=== PATIENT | female | born 1960 | race Hispanic/Latino ===

== ENCOUNTER 2018-06-17 10:42 | Emergency (ER) | payer MEDICARE ==
[~2018-06-17 10:42] MED LIST: AMLO10TA7 PO; ARFO15VI3 IH; ASPI-1005 PO; B CO1CAP PO; BENZ200C53 PO; BUDE10.2 IH; CALC0.253 PO; CRAN1CAP9 PO; FERR-82 PO; FURO40TA5 PO; INSU100V12 SQ; INSU10VI3 SQ; ISOS120T14 PO; KRIL500C PO; LEVO175T9 PO; LEVO250T2 PO; LOVA40TA2 PO; METO2.5T2 PO; METO50TA18 PO; NAPR220C15 PO; NITR0.4T50 SL; OMEP20TA25 PO; RANO10003 PO; WARF-57 PO
[2018-06-17] MEDS ORDERED: PROCHLORPERAZINE EDISYLATE 10 MG/2 ML VIAL ONE (10:57)
[2018-06-17] MEDS ORDERED: KETOROLAC TROMETHAMINE 15MG/ML ONE (10:57)
[2018-06-17 11:29] LABS: BASOPHILS % (AUTO) 0.5 % (0.0-5.0); EOSINOPHILS % (AUTO) 0.2 % (0.0-8.0); HEMATOCRIT 32.3 % (36-48); LYMPHOCYTES % (AUTO) 3.8 % (21.0-51.0); MEAN CORPUSCULAR HEMOGLOBIN 34.5 pg (27.0-33.0); MEAN CORPUSCULAR HGB CONC 34.2 g/dL (32.0-36.0); MEAN CORPUSCULAR VOLUME 100.7 fL (79-99); MONOCYTES % (AUTO) 4.8 % (3.0-13.0); NEUTROPHILS % (AUTO) 90.7 % (40.0-77.0); NUCLEATED RED BLOOD CELLS 0.3 % (0.0-0.19); PLATELET COUNT (AUTO) 216 K/uL (130-400); RED CELL DISTRIBUTION WIDTH 15.4 % (11.0-15.5); WHITE BLOOD COUNT (AUTO) 8.7 K/uL (4.8-10.8)
[2018-06-17 11:30] LABS: CREATININE 3.1 mg/dL (0.5-1.5); POTASSIUM 4.7 mmol/L (3.5-5.1)
[2018-06-17 11:36] LABS: INR 0.99 (0.85-1.15); PARTIAL THROMBOPLASTIN TIME 30.5 SEC (26.3-35.5); PROTHROMBIN TIME 10.4 SEC (9.6-11.6)
[2018-06-17 11:41] LABS: ALBUMIN 3.7 g/dL (3.5-5.0); TOTAL PROTEIN, SERUM 8.3 g/dL (6.0-8.3)
[2018-06-17 11:56] LABS: B-TYPE NATRIURETIC PEPTIDE 998 pg/mL (0-100)
[2018-06-19] MEDS ORDERED: MONT10TA24 PO (05:39)
[2018-06-19] MEDS ORDERED: PANT40TA PO (05:39)
[2018-06-19] MEDS ORDERED: ATOR40TA71 PO (05:39)
[2018-06-19] MEDS ORDERED: METO5TAB2 PO (05:39)
[2018-06-19] MEDS ORDERED: ACET325C5 PO (05:39)
[2018-06-19] MEDS ORDERED: SEVE800T7 PO (05:39)
[2018-06-19] MEDS ORDERED: FOLI1TAB85 PO (05:39)
[2018-06-19] MEDS ORDERED: METH500T6 PO (05:39)
[2018-06-19] MEDS ORDERED: GABA-529 PO (05:39)
[2018-06-19] MEDS ORDERED: METO50TA18 PO (05:39)
[2018-06-19] MEDS ORDERED: APIX5TAB PO (05:39)
[2018-06-19] MEDS ORDERED: AEC81 PO (05:39)
[2018-06-19] MEDS ORDERED: FEBU40TA PO (05:39)
[2018-06-19] MEDS ORDERED: FLUT15.88 NS (05:54)
[2018-06-19] MEDS ORDERED: FLUT1AER IH (05:54)
[2018-06-19] MEDS ORDERED: INSU100I3 SQ (05:54)
[2018-06-19] MEDS ORDERED: FOLI0.4T2 PO (05:54)
[2018-06-19] MEDS ORDERED: CHOL100040 PO (05:58)
[2018-06-19] MEDS ORDERED: MECL-129 PO (05:58)
[2018-06-19] MEDS ORDERED: ALBU6.7H IH (06:07)
[2018-06-20] MEDS ORDERED: METH500T6 PO (15:00)
== END 2018-06-17 16:42 | disposition home or self-care (01) ==
LOC: EDH 10:42
DX: G43.909 Migraine, unspecified, not intractable, without status migrainosus (principal); R07.9 Chest pain, unspecified; R10.13 Epigastric pain; R11.2 Nausea with vomiting, unspecified; I25.10 Atherosclerotic heart disease of native coronary artery without angina pectoris; N18.6 End stage renal disease; I48.0 Paroxysmal atrial fibrillation
CPT/HCPCS: 36415; 71045; 80053; 82550; 83690; 83874; 83880; 84484 ×2; 85025; 85610; 85730; 93005 ×2; 96374; 96375; 99285; J0780; J1885

== ENCOUNTER 2019-09-10 10:44 | Inpatient (IN) | payer MEDICARE ==
[~2019-09-10] VITALS: Ht 165.1 cm; Wt 168.7 kg
[~2019-09-10 10:44] MED LIST changes: +ACET325C6 PO; +AEC81 PO; +ALBU6.7H9 IH; -AMLO10TA7 PO; +APIX5TAB PO; -ARFO15VI3 IH; -ASPI-1005 PO; +ATOR40TA71 PO; -B CO1CAP PO; -BENZ200C53 PO; -BUDE10.2 IH; -CALC0.253 PO; +CHOL100040 PO; -CRAN1CAP9 PO; +FEBU40TA PO; -FERR-82 PO; +FLUT15.845 NS; +FLUT1AER IH; +FOLI0.4T2 PO; +FOLI1TAB85 PO; -FURO40TA5 PO; +GABA-529 PO; +INSU100I3 SQ; -INSU10VI3 SQ; -ISOS120T14 PO; -KRIL500C PO; -LEVO250T2 PO; -LOVA40TA2 PO; +MECL-129 PO; +METH500T6 PO; -METO2.5T2 PO; +METO5TAB2 PO; +MONT10TA26 PO; -NAPR220C15 PO; -OMEP20TA25 PO; +PANT40TA PO; -RANO10003 PO; +SEVE800T7 PO; -WARF-57 PO
[2019-09-10 11:45] LABS: BASOPHILS % (AUTO) 0.4 % (0.0-5.0); EOSINOPHILS % (AUTO) 0.2 % (0.0-8.0); HEMATOCRIT 35.1 % (36-48); LYMPHOCYTES % (AUTO) 10.1 % (21.0-51.0); MEAN CORPUSCULAR HEMOGLOBIN 34.6 pg (27.0-33.0); MEAN CORPUSCULAR HGB CONC 32.2 g/dL (32.0-36.0); MEAN CORPUSCULAR VOLUME 107.3 fL (79-99); MONOCYTES % (AUTO) 8.9 % (3.0-13.0); NUCLEATED RED BLOOD CELLS 0.4 % (0.0-0.19); PLATELET COUNT (AUTO) 126 K/uL (130-400); RED BLOOD CELL COUNT(AUTO) 3.27 MIL/uL (4.00-5.50); RED CELL DISTRIBUTION WIDTH 15.9 % (11.0-15.5); WHITE BLOOD COUNT (AUTO) 4.5 K/uL (4.8-10.8)
[2019-09-10 12:01] LABS: ABG BASE EXCESS -1.2 mmol/L (-2.0-3.0); ABG HCO3 23.5 mmol/L (21.0-28.0); ABG PCO2 39 mmHg (32-45)
[2019-09-10 12:14] LABS: B-TYPE NATRIURETIC PEPTIDE 1400 pg/mL (0-100)
[2019-09-10 12:26] LABS: CREATININE 10.8 mg/dL (0.5-1.5); POTASSIUM 7.2 mmol/L (3.5-5.1)
[2019-09-10 12:29] LABS: BILIRUBIN,TOTAL 0.5 mg/dL (0.2-1.0); TOTAL PROTEIN, SERUM 7.2 g/dL (6.0-8.3)
[2019-09-10] MEDS ORDERED: CALCIUM GLUCONATE 1 GM/10 ML VIAL IV ONE (12:33)
[2019-09-10] MEDS ORDERED: SODIUM POLYSTYRENE SULFONATE 15 GM/60 ML ML ONE (12:33)
[2019-09-10] MEDS ORDERED: DEXTROSE 50%-WATER 50 ML DISP.SYRIN IV ONE (12:34)
[2019-09-10] MEDS ORDERED: SODIUM BICARB 50MEQ 50ML VIAL ONE (12:34)
[2019-09-10] MEDS ORDERED: SODIUM CHLORIDE 0.9% 50 ML IV ONE (12:35)
[2019-09-10] MEDS ORDERED: INSULIN HUMULIN R 100 UNIT/ML 3ML ONE (12:35)
[2019-09-10] MEDS ORDERED: ALBUTEROL SULFATE 0.083% 2.5 MG/3 ML INH IH ONE (12:40)
[2019-09-10 12:55] LABS: ACETAMINOPHEN < 1 mcg/mL (10-30); SALICYLATE < 2.8 mg/dL (2.8-20.0)
[2019-09-10 13:19] LABS: INR 0.99 (0.85-1.15); PARTIAL THROMBOPLASTIN TIME 34.2 SEC (26.3-35.5); PROTHROMBIN TIME 10.7 SEC (9.6-11.6)
[2019-09-10 13:19] LABS: ABG OXYGEN SATURATION 95.5 % (95.0-99.0)
[2019-09-10] MEDS ORDERED: ACETAMINOPHEN 325 MG TAB ONE ×2 (14:10→22:12)
[2019-09-10] MEDS ORDERED: ZOSYN 3.375GM+NS 50ML 50 ML IV ONE (14:33)
[2019-09-10] MEDS ORDERED: ERGOCALCIFEROL (VITAMIN D2) 50,000 UNIT CAPSULE PO ONE (15:00)
[2019-09-10] MEDS ORDERED: DOXYCYCLINE 100MG+NS 250ML IV SCH (15:00)
[2019-09-10] MEDS ORDERED: ALBUMIN (HUMAN) 25% 50 ML IV ONE (16:13)
[2019-09-10] MEDS ORDERED: DOXYCYCLINE 100MG+NS 250ML 250 ML IV ONE (16:27)
[2019-09-10] MEDS ORDERED: ERGOCALCIFEROL (VITAMIN D2) 50,000 UNIT CAPSULE ONE (16:31)
[2019-09-10] MEDS ORDERED: DILTIAZEM 125MG+100 ML NS 125 ML IV SCH (17:15)
[2019-09-10] MEDS ORDERED: PHARMACY COMMUNICATION MISC SCH (17:15)
[2019-09-10] MEDS ORDERED: DILTIAZEM HCL 125 MG/25 ML VIAL IV ONE (17:31)
[2019-09-10] MEDS ORDERED: SODIUM CHLORIDE 0.9% 100 ML IV ONE ×2 (17:32→23:08)
[2019-09-10 18:40] LABS: ALBUMIN 3.5 g/dL (3.5-5.0); BILIRUBIN,DIRECT 0.1 mg/dL (0.0-0.3); BILIRUBIN,TOTAL 0.4 mg/dL (0.2-1.0); TOTAL PROTEIN, SERUM 8.1 g/dL (6.0-8.3)
[2019-09-10 19:26] LABS: TROPONIN I 1.69 ng/mL (0.00-0.06)
[2019-09-10] MEDS ORDERED: METHYLPREDNISOLONE SOD SUCC 40MG/ML 1ML IVP SCH (21:00)
[2019-09-10] MEDS ORDERED: HYDROCORTISONE SOD SUCCINATE 100 MG/2 ML VIAL ONE (22:49)
[2019-09-10] MEDS ORDERED: MIDODRINE HCL 5 MG TABLET ONE (22:50)
[2019-09-10] MEDS ORDERED: AMIODARONE HCL 50 MG/ML 3 ML VIAL ONE ×2 (23:08→23:09)
[2019-09-10] MEDS ORDERED: SODIUM CHLORIDE 0.9% 250 ML IV ONE (23:09)
[2019-09-10 23:46] LABS: CREATININE 6.6 mg/dL (0.5-1.5)
[2019-09-10 23:49] LABS: MAGNESIUM 1.6 mg/dL (1.80-2.40); PHOSPHORUS 4.2 mg/dL (2.5-4.9)
[2019-09-11] VITALS (27 sets, daily range): BP systolic 90–135; BP diastolic 26–86
[2019-09-11] MEDS ORDERED: MAGNESIUM 2GM PREMIX 50ML 50 ML IV ONE (00:03)
[2019-09-11] MEDS ORDERED: PHENYLEPHRINE HCL 10 MG/ML 1ML VIAL IV ONE ×5 (00:39→23:16)
[2019-09-11] MEDS ORDERED: SODIUM CHLORIDE 0.9% 250 ML IV ONE ×3 (03:02→08:50)
[2019-09-11] MEDS ORDERED: AMIODARONE HCL 50 MG/ML 3 ML VIAL ONE (05:57)
[2019-09-11 07:09] LABS: BASOPHILS % (AUTO) 0.3 % (0.0-5.0); HEMATOCRIT 38.3 % (36-48); LYMPHOCYTES % (AUTO) 8.6 % (21.0-51.0); MEAN CORPUSCULAR HEMOGLOBIN 34.8 pg (27.0-33.0); MEAN CORPUSCULAR HGB CONC 31.9 g/dL (32.0-36.0); MEAN CORPUSCULAR VOLUME 109.1 fL (79-99); MONOCYTES % (AUTO) 5.8 % (3.0-13.0); NEUTROPHILS % (AUTO) 81.3 % (40.0-77.0); PLATELET COUNT (AUTO) 88 K/uL (130-400); RED BLOOD CELL COUNT(AUTO) 3.51 MIL/uL (4.00-5.50); RED CELL DISTRIBUTION WIDTH 16.2 % (11.0-15.5); WHITE BLOOD COUNT (AUTO) 7.3 K/uL (4.8-10.8)
[2019-09-11 07:46] LABS: INR 1.03 (0.85-1.15); PARTIAL THROMBOPLASTIN TIME 30.5 SEC (26.3-35.5); PROTHROMBIN TIME 11.1 SEC (9.6-11.6)
[2019-09-11] MEDS ORDERED: PHARMACY COMMUNICATION MISC SCH (08:45)
[2019-09-11] MEDS ORDERED: ENOXAPARIN SODIUM 40 MG/0.4 ML SYRINGE SQ SCH (09:00)
[2019-09-11 09:43] LABS: BILIRUBIN,TOTAL 0.5 mg/dL (0.2-1.0); MAGNESIUM 2.7 mg/dL (1.80-2.40); POTASSIUM 5.2 mmol/L (3.5-5.1); TOTAL PROTEIN, SERUM 7.1 g/dL (6.0-8.3)
[2019-09-11 09:48] LABS: CREATININE 8.4 mg/dL (0.5-1.5); TROPONIN I 4.78 ng/mL (0.00-0.06)
[2019-09-11 09:55] LABS: CRP QUANTITATIVE 274.2 mg/L (0.00-9.0)
[2019-09-11] MEDS ORDERED: MIDODRINE HCL 5 MG TABLET ONE (13:18)
[2019-09-11 13:26] LABS: ABG BASE EXCESS -1.1 mmol/L (-2.0-3.0); ABG HCO3 23.5 mmol/L (21.0-28.0); ABG OXYGEN SATURATION 99.6 % (95.0-99.0); ABG PCO2 39 mmHg (32-45)
--- NOTE | 2019-09-11 13:35 | NUR ---
IA- SPOKE TO DAUGHTER FOR DC PLANNING STATES PATIENT LIVES WITH SPOUSE, SON/DAUGHTER IN LAW/ KID, NO SICK CONTACTS IN THE HOME, STATES PATIENT USES A CANE FOR AMBULATION, HAS A SHOWE CHAIR, RAMP AT HOUSE, STATES FAMILY DRIVES TO DIALYSIS; STATE GOES TO DIALYSIS AT [facility] ON [address], AWARE THAT KARISHMA POSITIVE COVID STATUS WILL NEED TO GO TO [place] FOR HD TX. NEPHROLOIST IS LEE ANN WEI Addendum: 09/11/19 at 1340 by TYLER SANTOS RN CM Amended: Links added.
[2019-09-11] MEDS: MIDODRINE HCL 5 MG TABLET PO SCH ×4 (14:00→21:52)
[2019-09-11] MEDS: CEFTRIAXONE SODIUM 1 GM IVP SCH ×3 (15:08→17:18)
[2019-09-11] MEDS: DOXYCYCLINE 100MG+NS 250ML 250 ML IV SCH ×2 (15:09→15:14)
[2019-09-11] MEDS: HYDROCORTISONE SOD SUCCINATE 100 MG/2 ML VIAL IV SCH ×5 (15:10→17:18)
[2019-09-11] MEDS: ASCORBIC ACID 500 MG TAB PO SCH (15:12)
[2019-09-11] MEDS: ZINC SULFATE 220 CAPSULE PO SCH (15:12)
[2019-09-11 15:14] LABS: TROPONIN I 5.35 ng/mL (0.00-0.06)
[2019-09-11] MEDS: PHENYLEPHRINE HCL 10 MG in SODIUM CHLORIDE 0.9% 250 ML IV PRN ×2 (18:39→23:47)
[2019-09-11] MEDS ORDERED: HEPARIN SODIUM 5000UNIT/ML 1ML VIAL IV SCH ×2 (18:45→21:00)
[2019-09-11] MEDS: HEPARIN 25000 UNITS/250 ML D5W 250 ML IV PRN ×2 (20:00→22:13)
[2019-09-11] MEDS: DOXYCYCLINE HYCLATE 100 MG TABLET PO SCH (21:52)
[2019-09-12] VITALS (67 sets, daily range): BP systolic 43–153; BP diastolic 14–108
[2019-09-12 00:52] LABS: HEMATOCRIT 35.6 % (36-48)
[2019-09-12] MEDS: CEFTRIAXONE SODIUM 1 GM IVP SCH ×2 (02:14→12:54)
[2019-09-12] MEDS: HYDROCORTISONE SOD SUCCINATE 100 MG/2 ML VIAL IV SCH ×5 (02:15→18:37)
[2019-09-12] MEDS: PHENYLEPHRINE HCL 10 MG in SODIUM CHLORIDE 0.9% 250 ML IV PRN (02:16)
--- NOTE | 2019-09-12 03:00 | NUR ---
Notified MD of positive occult blood in stool, no new orders received. Also, informed of heparin start and end times and most recent hemoglobin and hematocrit.
[2019-09-12 07:00] LABS: ALBUMIN 2.9 g/dL (3.5-5.0); BILIRUBIN,TOTAL 0.6 mg/dL (0.2-1.0); TOTAL PROTEIN, SERUM 7.1 g/dL (6.0-8.3)
[2019-09-12 07:36] LABS: CREATININE 10.3 mg/dL (0.5-1.5); POTASSIUM 6.2 mmol/L (3.5-5.1)
[2019-09-12] MEDS ORDERED: CEFTRIAXONE SODIUM 1 GM IVP SCH (08:15)
[2019-09-12] MEDS: DOXYCYCLINE HYCLATE 100 MG TABLET PO SCH ×2 (08:30→20:57)
[2019-09-12] MEDS: MIDODRINE HCL 5 MG TABLET PO SCH ×3 (08:30→20:57)
[2019-09-12] MEDS ORDERED: VASOPRESSIN 20 UNITS in SODIUM CHLORIDE 0.9% 100 ML IV SCH (08:45)
[2019-09-12] MEDS: ASCORBIC ACID 500 MG TAB PO SCH (09:00)
[2019-09-12] MEDS ORDERED: ASPIRIN 81MG TAB.CHEW PO SCH (09:00)
[2019-09-12] MEDS ORDERED: SODIUM POLYSTYRENE SULFONATE 15 GM/60 ML ML RC SCH (09:00)
[2019-09-12] MEDS ORDERED: CLOPIDOGREL BISULFATE 75 MG TAB PO SCH (09:00)
[2019-09-12] MEDS ORDERED: PANTOPRAZOLE 40 MG/VIAL IVP SCH (09:00)
[2019-09-12] MEDS ORDERED: CALCIUM CHLORIDE 100 MG/ML 10 ML SYG IVP SCH (09:00)
[2019-09-12] MEDS ORDERED: ACETAMINOPHEN 325 MG TAB PO SCH (09:00)
[2019-09-12] MEDS ORDERED: INSULIN HUMULIN R 100 UNIT/ML 3ML SQ SCH (09:00)
[2019-09-12] MEDS: ZINC SULFATE 220 CAPSULE PO SCH (09:00)
[2019-09-12] MEDS ORDERED: DEXTROSE 50%-WATER 25 GM/50 ML VIAL IV SCH (09:00)
[2019-09-12] MEDS: PHARMACY COMMUNICATION MISC SCH ×2 (09:15→16:42)
[2019-09-12] MEDS ORDERED: SODIUM POLYSTYRENE SULFONATE 15 GM/60 ML ML ONE (09:18)
[2019-09-12] MEDS ORDERED: INSULIN HUMULIN R 100 UNIT/ML 3ML ONE (09:20)
[2019-09-12] MEDS ORDERED: DEXTROSE 50%-WATER 50 ML DISP.SYRIN IV ONE (09:29)
[2019-09-12 09:50] LABS: HEMATOCRIT 33.5 % (36-48)
[2019-09-12] MEDS: NOREPINEPHRINE 4MG/NS 250ML 250 ML IV SCH ×2 (10:08→14:55)
--- NOTE | 2019-09-12 11:25 | NUR ---
CALLED DR. ROCHE'S OFFICE TO INFORM OF NEPHROLOGY CONSULT. SPOKE WITH KATIE, OFFICE STAFF MEMBER WHO WILL NOTIFY DR. ROCHE.
--- NOTE | 2019-09-12 11:37 | NUR ---
PAGED DR. Pito FERNANDO, ASSEMBLY ADJUSTER PER DR. FOX'S OFFICE, TO INFORM OF PERSISTENT AFIB-130'S. AWAITING RESPONSE.
--- NOTE | 2019-09-12 11:44 | NUR ---
RECEIVED CALL FROM DR. FERNANDO, INFORMED OF PT.'S STATUS AND MEDICATION REGIMEN. ORDER TO CALL DR. FOX RECEIVED.
[2019-09-12] MEDS: HEPARIN 25000 UNITS/250 ML D5W 250 ML IV PRN ×2 (11:59→22:09)
--- NOTE | 2019-09-12 12:00 | NUR ---
PAGED DR. Janna FOX PER DR. FERNANDO'S INSTRUCTIONS. AWAITING RESPONSE.
[2019-09-12] MEDS ORDERED: SODIUM CHLORIDE 0.9% 500ML 500 ML IV SCH (12:15)
[2019-09-12] MEDS ORDERED: AMIODARONE HCL 200 MG TABLET PO ONE (12:17)
--- NOTE | 2019-09-12 12:20 | NUR ---
CALLED DR. Pito FERNANDO DIRECTLY TO INFORM OF PT. IN PERSISTENT AFIB-140'S AND HYPOTENSIVE; WELL PT. EXPERIENCING SHARP CHEST PAIN. ORDERS RECEIVED.
[2019-09-12] MEDS: AMIODARONE HCL 200 MG TABLET PO SCH ×2 (12:38→20:57)
[2019-09-12] MEDS: SODIUM CHLORIDE 0.9% 1000ML 1,000 ML IV SCH ×2 (12:54→15:08)
--- NOTE | 2019-09-12 13:30 | NUR ---
CALLED PT.'S DAUGHTER, ADRIA JUAREZ, UPDATED ON MEDICATION REGIMEN AND CURRENT VS WELL PICC LINE TO BE ATTEMPTED AND PT. ON NRB; VERBALIZED UNDERSTANDING AND QUESTIONS ANSWERED.
--- NOTE | 2019-09-12 16:33 | NUR ---
CHART CHECK COMPLETED. Pt IS A 58 Y.O. FEMALE ADMITTED SECONDARY TO COVID +, AMS, ESRD. Pt HAS A PAST MEDICAL HISTORY SIGNIFICANT FOR CAD, ESRD-HD, AFIP. Pt CURRENTLY NPO. PLEASE REQUEST FORMAL SKILLED SPEECH/SWALLOW EVALUATION IF Pt PRESENTS WITH +S/S OF ASPIRATION SUCH COUGH RESPONSE, THROAT CLEAR, OR WET VOCAL QUALITY DURING P.O. Addendum: 09/12/19 at 1635 by KATHARINE CAVAZOS [facility] Amended: Links added.
--- NOTE | 2019-09-12 16:42 | NUR ---
DR LEE ANN OJEDA- K LEVEL 7.0
[2019-09-12] MEDS: NOREPINEPHRINE BITARTRATE 8 MG in SODIUM CHLORIDE 0.9% 250 ML IV SCH ×3 (19:01→23:54)
--- NOTE | 2019-09-12 19:23 | NUR ---
DR SAINI NOTIFIED OF PT DETERIORATION- LOW 02 SATS AND LOW BP'S. LABORED RESPIRATIONS. PT DNI. STATES PT HAS POOR PROGNOSIS AND HIGH RISK OF . I HAVE CONTACTED PT MERY AND LET HIM KNOW THAT PT IS DETERIORATING AND HAS HIGH RISK OF . AT THIS TIME HE SPOKE TO HIS CHILDREN AND PT IS CPR/MEDS ONLY..STILL DNI. PLACED ON CPAP 10 FIO2 100%
--- NOTE | 2019-09-12 23:32 | NUR ---
HAND OFF REPORT GIVEN TO DELROY BONILLA
--- NOTE | 2019-09-12 23:53 | NUR ---
Received patient Patient lying in bed, with eyes closed, wearing Cpap, Hemodialysis is n progress. V/s BP 84/41, HR 136 (unstable, irregular), Respirations 25, O2 Sat 97%. Skin cool and clammy, blood sugar 235
[2019-09-13] MEDS: HYDROCORTISONE SOD SUCCINATE 100 MG/2 ML VIAL IV SCH (00:15)
[2019-09-13] MEDS: CEFTRIAXONE SODIUM 1 GM IVP SCH (00:15)
[2019-09-13] MEDS ORDERED: DEXMEDETOMIDINE HCL 400 MCG in SODIUM CHLORIDE 0.9% 100 ML IV SCH (02:00)
[2019-09-13 02:35] LABS: HEMATOCRIT 39.9 % (36-48)
[2019-09-13 03:05] LABS: ALBUMIN 2.6 g/dL (3.5-5.0); BILIRUBIN,TOTAL 1.2 mg/dL (0.2-1.0); TOTAL PROTEIN, SERUM 7.2 g/dL (6.0-8.3)
[2019-09-13 03:18] LABS: CREATININE 10.1 mg/dL (0.5-1.5); POTASSIUM 6.4 mmol/L (3.5-5.1)
[2019-09-13 03:35] LABS: CRP QUANTITATIVE 443.9 mg/L (0.00-9.0)
[2019-09-13] MEDS ORDERED: NOREPINEPHRINE 4MG/NS 250ML 250 ML IV ONE ×2 (03:46→03:51)
[2019-09-13] MEDS ORDERED: NOREPINEPHRINE BITARTRATE 1 MG/1 ML ML IV ONE (03:52)
[2019-09-13] MEDS ORDERED: SODIUM CHLORIDE 0.9% 250 ML IV ONE (03:58)
[2019-09-13 04:00] VITALS: BP 88/53
--- NOTE | 2019-09-13 05:48 | NUR ---
Documentation of I noticed change in this patient's breathing and her cpap started alarming, went to phone respiratory to come check the cpap, went back to room to find patient unresponsive, Code iza called and CPR was initiated and unsuccessful, see Code sheet for more information. Family was notified per myself, SHILPA was called per myself.
[2019-09-13] MEDS ORDERED: INSULIN HUMULIN R 100 UNIT/ML 3ML IV SCH (09:00)
[2019-09-13] MEDS ORDERED: SODIUM POLYSTYRENE SULFONATE 15 GM/60 ML ML PO SCH (09:00)
--- NOTE | 2019-09-13 09:04 | NUR ---
DC PLAN VISITED WITH PATIENT FULL PROTECTIVE GEAR. ATTEMPTED MULTIPLE TIMES TO FACE TIME WITH FAMILY PATIENT HAD BEEN UNSTABLE. FINALLY ABLE TO SEE PATIENT. PATIENT DID NOT WANT TO TALK TO FAMILY AGREED TO HAVE FAMILY AT LEAST SEE HER. NURSE AT BEDSIDE HEARD CONVERSATION AND PATIENT NOT REALLY WANTING TO SEE FAMILY. LET FAMILY KNOW. THEY ASKED FOR ME TO ASK IF THEY COULD ALSO JUST LOOK AT HER. ASKED PERMISSION FROM PATIENT WHO AGREED TO FACE TIME AND SEE FAMILY. AFTER A COUPLE MINUTES PATIENT DID NOT WANT ANY MORE. SIGNED OFF FROM FAMILY. Addendum: 09/14/19 at 1009 by ABIDA FORMAN RN CM REGARDING NOTE DISCUSSION WITH FAMILY AND PATIENT ON 09/12/2019.
== END 2019-09-13 05:38 | disposition expired | DRG 177 ==
LOC: EDH 10:44 → EDHIP 13:40 → 2CV 09-11 15:13
PROVIDERS: ADMIT Hospitalist; ATTEND Hospitalist
PROC: 5A1D70Z Performance of Urinary Filtration, Intermittent, Less than 6 Hours Per Day (ICD-10-PCS; principal; 2019-09-12)
PROC: 5A09357 Assistance with Respiratory Ventilation, Less than 24 Consecutive Hours, Continuous Positive Airway Pressure (ICD-10-PCS; 2019-09-12)
PROC: 5A1D70Z Performance of Urinary Filtration, Intermittent, Less than 6 Hours Per Day (ICD-10-PCS; 2019-09-13)
PROC: 30233K1 Transfusion of Nonautologous Frozen Plasma into Peripheral Vein, Percutaneous Approach (ICD-10-PCS; 2019-09-13)
PROC: 5A12012 Performance of Cardiac Output, Single, Manual (ICD-10-PCS; 2019-09-13)
DX: U07.1 COVID-19 (principal); J12.89 Other viral pneumonia; J96.01 Acute respiratory failure with hypoxia; N18.6 End stage renal disease; I13.2 Hypertensive heart and chronic kidney disease with heart failure and with stage 5 chronic kidney disease, or end stage renal disease; G93.49 Other encephalopathy; I48.19 Other persistent atrial fibrillation; Z68.44 Body mass index [BMI] 60.0-69.9, adult; E87.5 Hyperkalemia; Z99.2 Dependence on renal dialysis; E11.22 Type 2 diabetes mellitus with diabetic chronic kidney disease; E03.9 Hypothyroidism, unspecified; I48.0 Paroxysmal atrial fibrillation; E78.5 Hyperlipidemia, unspecified; I25.10 Atherosclerotic heart disease of native coronary artery without angina pectoris; I44.7 Left bundle-branch block, unspecified; I50.9 Heart failure, unspecified; Z79.899 Other long term (current) drug therapy; Z80.41 Family history of malignant neoplasm of ovary; Z82.0 Family history of epilepsy and other diseases of the nervous system; Z82.3 Family history of stroke; Z82.49 Family history of ischemic heart disease and other diseases of the circulatory system; Z82.5 Family history of asthma and other chronic lower respiratory diseases; Z83.3 Family history of diabetes mellitus; Z88.8 Allergy status to other drugs, medicaments and biological substances; Z88.6 Allergy status to analgesic agent; Z91.041 Radiographic dye allergy status; E66.01 Morbid (severe) obesity due to excess calories; R57.0 Cardiogenic shock
CPT/HCPCS: 36415; 36600; 70450; 71045; 72125; 80048; 80053; 80076; 82270; 82550; 82728; 82803; 82948; 83605; 83615; 83735; 83874; 83880; 84100; 84132; 84145; 84484; 85014; 85018; 85025; 85378; 85610; 85730; 86140; 86850; 86900; 86901; 86927; 87040; 87426; 90935; 92950; 93005; 93306; 94640; 94660; 99291; C9113; G0378; G0481; J0282; J0610; J0696; J1644; J1720; J1815; J2370; J2543; J3475; J3490; J7030; J7040; J7050; J7070; P9047